=== PATIENT | female | born 1985 | race Caucasian/White ===

== ENCOUNTER → 2016-10-03 | Outpatient (REF) | payer OTHER ==
[~2016-10-03] MED LIST: ACET50TA PO; ANUS2.5C2 TOP; DOCU10CA PO; DOCU10ELUD PO; IBUP100SUS PO; IBUP80TA PO; MOM30SS PO; TYLE325T5 PO
== END ==
LOC: M LAB REF 17:34
PROVIDERS: ATTEND Advanced Practice Midwife
DX: Z12.4 Encounter for screening for malignant neoplasm of cervix (principal)

== ENCOUNTER → 2017-02-20 | Outpatient (CLI) | payer OTHER ==
--- NOTE | 2017-02-20 15:19 | REP ---
BILATERAL MAMMOGRAM WITH DIAGNOSTIC MAMMOGRAM RIGHT BREAST AND RIGHT BREAST ULTRASOUND: There is a 4 day history of a palpable abnormality in the upper outer quadrant of the right breast. The area is marked on the skin with a triangular marker. Additional spot compression views are performed of that region. Comparison made with prior study of 09/22/2008. There is moderate scattered fibroglandular tissue bilaterally. There is a vague oval nodular structure at the site of the reported palpable abnormality, measuring approximately 1.4 cm in maximum diameter. I see no other evidence of mass or clustered microcalcifications. Real-time sonographic evaluation of the right breast is performed at the site of the reported palpable abnormality. At that location is a solid nodule measuring 1.1 x 0.8 x 1.3 cm. It is heterogeneous. IMPRESSION: ACR 4 suspicious. At the site of the reported palpable abnormality there is a nodule seen both mammographically and sonographically. It is solid by ultrasound and I would recommend ultrasound guided biopsy. BI-RADS/ACR category 4 mammogram. Suspicious abnormality - biopsy should be considered. Usually requires biopsy. This mammogram was interpreted with the aid of an FDA-approved computer-aided detection system. The patient states she/he had a clinical breast exam in February 2017. The patient letter being requested is M4. Signed by Leroy Webster MD 02/21/2017 09:04 A
== END ==
LOC: M RAD 12:06
PROVIDERS: ATTEND Obstetrics & Gynecology
DX: N63.0 Unspecified lump in unspecified breast (principal)
CPT/HCPCS: 76642; G0204

== ENCOUNTER → 2017-07-19 | Outpatient (CLI) | payer OTHER ==
[2017-07-19 09:30] LABS: BASO % 0.4 % (0.0-1.0); EOS # 0.9 10^3/uL (0.0-0.50); EOS % 17.5 % (0.0-3.0); HEMATOCRIT 36.4 % (36.0-47.0); HEMOGLOBIN 12.1 g/dl (12.0-15.5); IMMATURE GRANULOCYTE % 0.2 % (0-3.0); LYMPH # 1.1 10^3/uL (1.5-4.5); LYMPH % 22.2 % (24.0-44.0); MEAN CORPUSCULAR HEMOGLOBIN 30.3 pg (27.0-33.0); MEAN CORPUSCULAR HGB CONC 33.2 g/dl (32.0-36.5); MONO # 0.4 10^3/uL (0.0-0.8); MONO % 8.6 % (0.0-5.0); NEUTROPHILS # 2.6 10^3/uL (1.8-7.7); NEUTROPHILS % 51.1 % (36.0-66.0); PLATELET COUNT, AUTOMATED 327 10^3/uL (150-450); WHITE BLOOD COUNT 5.1 10^3/uL (4.0-10.0)
[2017-07-19 09:42] LABS: ALBUMIN/GLOBULIN RATIO 1.21 (1.00-1.93); ALKALINE PHOSPHATASE 67 U/L (45-117); ALT/SGPT 10 U/L (12-78); ANION GAP 4 MEQ/L (8-16); AST/SGOT 14 U/L (7-37); BILIRUBIN,TOTAL 0.6 MG/DL (0.2-1.0); BLOOD UREA NITROGEN 12 MG/DL (7-18); CALCIUM LEVEL 8.7 MG/DL (8.5-10.1); CARBON DIOXIDE LEVEL 29 MEQ/L (21-32); CHLORIDE LEVEL 108 MEQ/L (98-107); GLOMERULAR FILTRATION RATE > 60.0 (>60); GLUCOSE, FASTING 85 MG/DL (70-100); POTASSIUM SERUM 5.1 MEQ/L (3.5-5.1); SODIUM LEVEL 141 MEQ/L (136-145); TOTAL PROTEIN 7.3 GM/DL (6.4-8.2)
[2017-07-19 09:43] LABS: INR 0.94; PROTHROMBIN TIME 12.7 SECONDS (12.4-14.5)
[2017-07-19 09:44] LABS: PARTIAL THROMBOPLASTIN TIME 26.9 SECONDS (26.8-37.9)
== END ==
LOC: M LAB 08:49
DX: Z01.812 Encounter for preprocedural laboratory examination (principal)
CPT/HCPCS: 80053

== ENCOUNTER → 2017-08-02 | Outpatient (CLI) | payer OTHER | LOC: M CARPUL 06:58 | DX: C81.11 Nodular sclerosis Hodgkin lymphoma, lymph nodes of head, face, and neck (principal) | CPT/HCPCS: 94010 ==

== ENCOUNTER → 2017-08-07 | Outpatient (CLI) | payer OTHER | LOC: M CARPUL 11:05 | DX: C81.11 Nodular sclerosis Hodgkin lymphoma, lymph nodes of head, face, and neck (principal) | CPT/HCPCS: 93306 ==

== ENCOUNTER 2017-08-16 18:34 | Emergency (ER) | payer OTHER ==
[2017-08-16] MEDS: ONDANSETRON 4MG/2ML VIAL (J2405) IV (19:57)
[2017-08-16] MEDS: NS 1,000 ML IV (19:57)
[2017-08-16] MEDS: MORPHINE 4 MG/ML 1ML VIAL/SYRINGE (J2270) IV ×2 (19:58→22:13)
[2017-08-16 20:14] LABS: BASO % 0.2 % (0.0-1.0); EOS # 0.7 10^3/uL (0.0-0.50); HEMATOCRIT 34.3 % (36.0-47.0); HEMOGLOBIN 11.7 g/dl (12.0-15.5); LYMPH # 1.4 10^3/uL (1.5-4.5); LYMPH % 16.8 % (24.0-44.0); MEAN CORPUSCULAR HEMOGLOBIN 30.2 pg (27.0-33.0); MEAN CORPUSCULAR HGB CONC 34.1 g/dl (32.0-36.5); MEAN CORPUSCULAR VOLUME 88.4 fl (80.0-96.0); MONO % 11.8 % (0.0-5.0); NEUTROPHILS # 4.2 10^3/uL (1.8-7.7); NEUTROPHILS % 51.1 % (36.0-66.0); PLATELET COUNT, AUTOMATED 290 10^3/uL (150-450); RED BLOOD COUNT 3.88 10^6/uL (4.00-5.40); RED CELL DISTRIBUTION WIDTH 11.7 % (11.5-14.5); WHITE BLOOD COUNT 8.2 10^3/uL (4.0-10.0)
[2017-08-16 20:17] LABS: IMMATURE GRANULOCYTE % 11.1 % (0-3.0)
[2017-08-16 20:18] LABS: POS COUNT POS FLAG; POSITIVE MORPH POS FLAG
[2017-08-16 20:39] LABS: ALBUMIN 3.9 GM/DL (3.2-5.2); ALKALINE PHOSPHATASE 95 U/L (45-117); ALT/SGPT 15 U/L (12-78); AMYLASE 42 U/L (25-115); ANION GAP 8 MEQ/L (8-16); AST/SGOT 18 U/L (7-37); BILIRUBIN,DIRECT < 0.1 MG/DL (0.0-0.2); BILIRUBIN,TOTAL 0.2 MG/DL (0.2-1.0); BLOOD UREA NITROGEN 11 MG/DL (7-18); CALCIUM LEVEL 8.8 MG/DL (8.5-10.1); CARBON DIOXIDE LEVEL 26 MEQ/L (21-32); CHLORIDE LEVEL 106 MEQ/L (98-107); CREATININE FOR GFR 0.85 MG/DL (0.55-1.30); GLOMERULAR FILTRATION RATE > 60.0 (>60); GLUCOSE, FASTING 130 MG/DL (70-100); LIPASE 106 U/L (73-393); POTASSIUM SERUM 4.1 MEQ/L (3.5-5.1); SODIUM LEVEL 140 MEQ/L (136-145); TOTAL PROTEIN 7.8 GM/DL (6.4-8.2)
[2017-08-16 20:43] LABS: KETONE, URINE AUTO RFX NEGATIVE (NEGATIVE); LEUKOCYTE ESTERASE UR AUTO RFX NEGATIVE (NEGATIVE); NITRITE, URINE AUTO RFX NEGATIVE (NEGATIVE); RBC, URINE AUTO RFX 2 /HPF (0-3); SPECIFIC GRAVITY UR AUTO RFX 1.005 (1.002-1.035); SQUAM EPITHELIAL CELL UR AURFX 0 /HPF (0-6); WBC, URINE AUTO RFX 1 /HPF (0-3)
[2017-08-16 21:01] LABS: LACTIC ACID SEPSIS PROTOCOL 2.9 MMOL/L (0.4-2.0)
[2017-08-16] MEDS ORDERED: ISOVUE-370 76% 100ML VIAL (Q9967) As Ordered (21:06)
[2017-08-16 21:08] LABS: CONTROL LINE UCG INT CTR LINE PRESENT; URINE PREG TEST NEGATIVE (NEGATIVE)
[2017-08-16 21:59] LABS: BASOPHILS 1 % (0-4); BLAST CELLS 1 % (0-0); METAMYELOCYTES 4 % (0-0)
[2017-08-16 22:01] LABS: NEUTROPHILS 54 % (35-75)
[2017-08-16 22:02] LABS: BANDS 3 % (< 11); EOSINOPHILS 7 % (0-5); LYMPHOCYTES 17 % (16-52); MONOCYTES 6 % (0-8); MYELOCYTES 2 % (0-0); PROMYELOCYTES 3 % (0-0)
[2017-08-16 22:03] LABS: ATYPICAL LYMPH 2 % (0-5)
[2017-08-16 22:04] LABS: PLATELET ESTIMATE NORMAL (NORMAL)
[2017-08-16 22:10] LABS: ADD MANUAL DIFFER YES
[2017-08-16 22:11] LABS: DIFF SLIDE NUMBER 367
[2017-08-16] MEDS: NORCO 5/325MG TABLET (BULK FOR ED) PO (22:41)
== END 2017-08-16 22:49 | disposition home or self-care (01) ==
LOC: M ED 18:34
DX: R10.9 Unspecified abdominal pain (principal); I45.10 Unspecified right bundle-branch block; C85.90 Non-Hodgkin lymphoma, unspecified, unspecified site; J45.909 Unspecified asthma, uncomplicated; Z86.19 Personal history of other infectious and parasitic diseases; R93.2 Abnormal findings on diagnostic imaging of liver and biliary tract; J30.2 Other seasonal allergic rhinitis; Z79.899 Other long term (current) drug therapy; Z91.013 Allergy to seafood
CPT/HCPCS: J2270

== ENCOUNTER 2017-08-17 16:16 | Emergency (ER) | payer OTHER ==
[2017-08-17 17:50] LABS: HEMATOCRIT 33.1 % (36.0-47.0); HEMOGLOBIN 11.1 g/dl (12.0-15.5); MEAN CORPUSCULAR HEMOGLOBIN 30.3 pg (27.0-33.0); MEAN CORPUSCULAR HGB CONC 33.5 g/dl (32.0-36.5); MEAN CORPUSCULAR VOLUME 90.4 fl (80.0-96.0); PLATELET COUNT, AUTOMATED 292 10^3/uL (150-450); RED BLOOD COUNT 3.66 10^6/uL (4.00-5.40); RED CELL DISTRIBUTION WIDTH 11.9 % (11.5-14.5); WHITE BLOOD COUNT 16.3 10^3/uL (4.0-10.0)
[2017-08-17] MEDS: MORPHINE 4 MG/ML 1ML VIAL/SYRINGE (J2270) IV (17:53)
[2017-08-17] MEDS: NS 1,000 ML IV (17:53)
[2017-08-17 18:10] LABS: LACTIC ACID SEPSIS PROTOCOL 1.5 MMOL/L (0.4-2.0)
[2017-08-17 18:11] LABS: ALBUMIN 3.8 GM/DL (3.2-5.2); ALBUMIN/GLOBULIN RATIO 1.23 (1.00-1.93); ALKALINE PHOSPHATASE 93 U/L (45-117); ALT/SGPT 15 U/L (12-78); ANION GAP 3 MEQ/L (8-16); AST/SGOT 23 U/L (7-37); BILIRUBIN,DIRECT < 0.1 MG/DL (0.0-0.2); BILIRUBIN,TOTAL 0.1 MG/DL (0.2-1.0); BLOOD UREA NITROGEN 9 MG/DL (7-18); CALCIUM LEVEL 8.9 MG/DL (8.5-10.1); CARBON DIOXIDE LEVEL 31 MEQ/L (21-32); CHLORIDE LEVEL 105 MEQ/L (98-107); CREATININE FOR GFR 0.76 MG/DL (0.55-1.30); GLOMERULAR FILTRATION RATE > 60.0 (>60); GLUCOSE, FASTING 99 MG/DL (70-100); POTASSIUM SERUM 4.1 MEQ/L (3.5-5.1); SODIUM LEVEL 139 MEQ/L (136-145); TOTAL PROTEIN 6.9 GM/DL (6.4-8.2)
[2017-08-17 18:48] LABS: POS COUNT POS FLAG; POSITIVE MORPH POS FLAG
[2017-08-17 18:49] LABS: ADD MANUAL DIFFER YES; DIFF SLIDE NUMBER 318
[2017-08-17 18:56] LABS: ATYPICAL LYMPH 9 % (0-5); BANDS 10 % (< 11); EOSINOPHILS 8 % (0-5); LYMPHOCYTES 10 % (16-52); METAMYELOCYTES 3 % (0-0); MONOCYTES 6 % (0-8); MYELOCYTES 1 % (0-0); NEUTROPHILS 53 % (35-75); NUCLEATED RED BLOOD CELL 1 % (0-0); PLATELET ESTIMATE NORMAL (NORMAL); TOXIC GRANULATION 1+
[2017-08-17] MEDS: PERCOCET 5MG/325MG TAB PO (19:08)
[2017-08-17 19:21] LABS: APPEARANCE, URINE HAZY (CLEAR); BACTERIA, URINE AUTO NEGATIVE (NEGATIVE); BILIRUBIN, URINE AUTO NEGATIVE (NEGATIVE); BLOOD, URINE BLOOD 1+ (NEGATIVE); COLOR, URINE YELLOW (YELLOW); GLUCOSE, URINE (UA) AUTO NEGATIVE (NEGATIVE); KETONE, URINE AUTO NEGATIVE (NEGATIVE); LEUKOCYTE ESTERASE, URINE AUTO NEGATIVE (NEGATIVE); MUCUS, URINE SMALL (NEGATIVE); NITRITE, URINE AUTO NEGATIVE (NEGATIVE); PROTEIN, URINE AUTO NEGATIVE (NEGATIVE); RBC, URINE AUTO 2 /HPF (0-3); SPECIFIC GRAVITY URINE AUTO 1.011 (1.002-1.035); SQUAMOUS EPITHELIAL CELL UR AU 4 /HPF (0-6); UROBILINOGEN, URINE AUTO 0.2 mg/dL (0.0-2.0); WBC, URINE AUTO 7 /HPF (0-3)
== END 2017-08-17 20:38 | disposition home or self-care (01) ==
LOC: M ED 16:16
DX: D72.829 Elevated white blood cell count, unspecified (principal); R10.9 Unspecified abdominal pain; T45.1X5A Adverse effect of antineoplastic and immunosuppressive drugs, initial encounter; C81.90 Hodgkin lymphoma, unspecified, unspecified site; Z91.048 Other nonmedicinal substance allergy status; Z91.013 Allergy to seafood; Z79.52 Long term (current) use of systemic steroids; Z79.899 Other long term (current) drug therapy; Z97.8 Presence of other specified devices
CPT/HCPCS: J2270

== ENCOUNTER 2017-09-29 16:58 | Emergency (ER) | payer OTHER ==
[2017-09-29 17:44] LABS: HEMATOCRIT 25.6 % (36.0-47.0); HEMOGLOBIN 8.5 g/dl (12.0-15.5); MEAN CORPUSCULAR HGB CONC 33.2 g/dl (32.0-36.5); MEAN CORPUSCULAR VOLUME 90.5 fl (80.0-96.0); PLATELET COUNT, AUTOMATED 178 10^3/uL (150-450); RED BLOOD COUNT 2.83 10^6/uL (4.00-5.40); RED CELL DISTRIBUTION WIDTH 14.4 % (11.5-14.5)
[2017-09-29 17:47] LABS: POS COUNT POS FLAG; POSITIVE DIFF POS FLAG; POSITIVE MORPH POS FLAG; WHITE BLOOD COUNT 1.8 10^3/uL (4.0-10.0)
[2017-09-29 17:50] LABS: ADD MANUAL DIFFER YES; DIFF SLIDE NUMBER 135
[2017-09-29] MEDS: NS 1,000 ML IV (18:07)
[2017-09-29] MEDS: ONDANSETRON 4MG/2ML VIAL (J2405) IV (18:07)
[2017-09-29] MEDS: MORPHINE 4 MG/ML 1ML VIAL/SYRINGE (J2270) IV (18:08)
[2017-09-29 18:17] LABS: ATYPICAL LYMPH 6 % (0-5); BANDS 6 % (< 11); BASOPHILS 2 % (0-4); EOSINOPHILS 1 % (0-5); LYMPHOCYTES 53 % (16-52); MONOCYTES 7 % (0-8); NEUTROPHILS 25 % (35-75)
[2017-09-29 18:19] LABS: ANISOCYTOSIS 1+; PLATELET ESTIMATE NORMAL (NORMAL); POLYCHROMASIA 1+; TEAR DROP CELLS 1+
[2017-09-29 18:20] LABS: ANION GAP 8 MEQ/L (8-16); BLOOD UREA NITROGEN 4 MG/DL (7-18); CALCIUM LEVEL 8.4 MG/DL (8.5-10.1); CARBON DIOXIDE LEVEL 32 MEQ/L (21-32); CHLORIDE LEVEL 99 MEQ/L (98-107); CREATININE FOR GFR 0.66 MG/DL (0.55-1.30); GLOMERULAR FILTRATION RATE > 60.0 (>60); GLUCOSE, FASTING 101 MG/DL (70-100); POTASSIUM SERUM 3.8 MEQ/L (3.5-5.1); SODIUM LEVEL 139 MEQ/L (136-145)
[2017-09-29] MEDS: GI COCKTAIL 50ML BTL(HYOSCYAMINE/MAALOX/LIDOCAINE VISCOUS)(1:3:1) PO (18:55)
[2017-09-29] MEDS ORDERED: ISOVUE-370 76% 100ML VIAL (Q9967) As Ordered (19:40)
== END 2017-09-29 22:24 | disposition home or self-care (01) ==
LOC: M ED 16:58
DX: D70.9 Neutropenia, unspecified (principal); K59.00 Constipation, unspecified; K64.4 Residual hemorrhoidal skin tags; C85.90 Non-Hodgkin lymphoma, unspecified, unspecified site; B19.20 Unspecified viral hepatitis C without hepatic coma; Z95.9 Presence of cardiac and vascular implant and graft, unspecified; Z92.21 Personal history of antineoplastic chemotherapy; J30.89 Other allergic rhinitis; Z91.013 Allergy to seafood
CPT/HCPCS: J2270

== ENCOUNTER → 2017-10-09 | Outpatient (CLI) | payer OTHER ==
[2017-10-09 14:37] LABS: BASO % 0.5 % (0.0-1.0); HEMATOCRIT 27.1 % (36.0-47.0); HEMOGLOBIN 8.9 g/dl (12.0-15.5); IMMATURE GRANULOCYTE % 0.5 % (0-3.0); LYMPH # 0.8 10^3/uL (1.5-4.5); LYMPH % 41.2 % (24.0-44.0); MEAN CORPUSCULAR HEMOGLOBIN 30.4 pg (27.0-33.0); MEAN CORPUSCULAR HGB CONC 32.8 g/dl (32.0-36.5); MEAN CORPUSCULAR VOLUME 92.5 fl (80.0-96.0); MONO # 0.1 10^3/uL (0.0-0.8); MONO % 3.4 % (0.0-5.0); NEUTROPHILS # 1.1 10^3/uL (1.8-7.7); NEUTROPHILS % 54.4 % (36.0-66.0); PLATELET COUNT, AUTOMATED 288 10^3/uL (150-450); RED BLOOD COUNT 2.93 10^6/uL (4.00-5.40); RED CELL DISTRIBUTION WIDTH 15.3 % (11.5-14.5)
== END ==
LOC: M LAB 14:12
DX: C81.11 Nodular sclerosis Hodgkin lymphoma, lymph nodes of head, face, and neck (principal)
CPT/HCPCS: 85025

== ENCOUNTER 2017-12-10 08:32 | Emergency (ER) | payer OTHER ==
[2017-12-10] MEDS: BISACODYL 10 MG SUPP PR (09:26)
== END 2017-12-10 10:57 | disposition home or self-care (01) ==
LOC: M ED 08:32
DX: K59.00 Constipation, unspecified (principal); C85.90 Non-Hodgkin lymphoma, unspecified, unspecified site; Z92.21 Personal history of antineoplastic chemotherapy; J45.909 Unspecified asthma, uncomplicated; J30.2 Other seasonal allergic rhinitis; Z86.19 Personal history of other infectious and parasitic diseases; Z79.899 Other long term (current) drug therapy; Z91.013 Allergy to seafood
CPT/HCPCS: 74018

== ENCOUNTER 2018-04-10 08:51 | Emergency (ER) | payer OTHER ==
[~2018-04-10] VITALS: Ht 160 cm; Wt 60.0 kg
[~2018-04-10 08:51] MED LIST changes: -ACET50TA PO; +BISAC5TA; +CYCL10TA; +DOCU100C16; +DULC10SU2 PR; +DULO1CAP2; +FLUC100T; +HYDR-3363; +IBUP80TA; +LORA0.5T11; +MAPA500T2 PO; +MAXA10TA14; +METH10TA2; +METH5TA PO; +OLAN10TA2; +ONDA8TAB8; +PERC5TAB12 PO; +PRED10TA2
[2018-04-10] MEDS ORDERED: KETOROLAC 30 MG/ML VIAL (J1885) IV ONE (09:30)
[2018-04-10] MEDS ORDERED: ONDANSETRON 4MG/2ML VIAL (J2405) IV ONE (09:30)
[2018-04-10] MEDS ORDERED: SODIUM CHLORIDE 0.9% INJ 10 ML SYR IV PRN (09:30)
[2018-04-10 09:46] LABS: BASO % 0.1 % (0.0-1.0); EOS # 0.3 10^3/uL (0.0-0.50); HEMATOCRIT 38.3 % (36.0-47.0); HEMOGLOBIN 12.3 g/dl (12.0-15.5); LYMPH # 0.7 10^3/uL (1.5-4.5); LYMPH % 9.3 % (24.0-44.0); MEAN CORPUSCULAR HEMOGLOBIN 29.7 pg (27.0-33.0); MEAN CORPUSCULAR HGB CONC 32.1 g/dl (32.0-36.5); MEAN CORPUSCULAR VOLUME 92.5 fl (80.0-96.0); MONO # 0.5 10^3/uL (0.0-0.8); MONO % 6.3 % (0.0-5.0); NEUTROPHILS # 5.8 10^3/uL (1.8-7.7); NEUTROPHILS % 79.9 % (36.0-66.0); PLATELET COUNT, AUTOMATED 274 10^3/uL (150-450); RED BLOOD COUNT 4.14 10^6/uL (4.00-5.40); WHITE BLOOD COUNT 7.3 10^3/uL (4.0-10.0)
[2018-04-10] MEDS: GASTROGRAFIN SOLUTION 30ML PO SCH ×2 (09:47→10:20)
[2018-04-10] MEDS: MORPHINE 4 MG/ML 1ML VIAL/SYRINGE (J2270) IV PRN ×2 (09:53→10:25)
[2018-04-10 10:28] LABS: BLOOD UREA NITROGEN 13 MG/DL (7-18); CARBON DIOXIDE LEVEL 30 MEQ/L (21-32); CHLORIDE LEVEL 102 MEQ/L (98-107); CREATININE FOR GFR 0.72 MG/DL (0.55-1.30); GLOMERULAR FILTRATION RATE > 60.0 (>60); GLUCOSE, FASTING 86 MG/DL (70-100); POTASSIUM SERUM 4.9 MEQ/L (3.5-5.1); SODIUM LEVEL 138 MEQ/L (136-145)
[2018-04-10] MEDS ORDERED: ISOVUE-370 76% 100ML VIAL (Q9967) As Ordered ONE (11:04)
--- NOTE | 2018-04-10 11:29 | REP ---
Clinical: Acute left lower quadrant pain. Technique: Axial contrast enhanced images from the lung bases to the pubic symphysis using oral (per protocol) and 100 ml Isovue 370 intravenous contrast material with coronal and sagittal re-formations. Comparison: 09/29/2017. Findings: Mucosal thickening and pericolonic stranding involving the proximal descending colon (images [id number]) is most compatible with infectious/inflammatory colitis versus diverticulitis. No free air or drainable collection/abscess identified to suggest perforation. Small amount of ascites noted in the pelvis. Moderate fecal stasis throughout the remainder of the colon noted without evidence for bowel obstruction. Liver, spleen, pancreas, gallbladder, bilateral adrenal glands and kidneys are normal. Pelvis demonstrates normal bladder and age-appropriate uterus/adnexa. No adenopathy. Abdominal aorta and vasculature normal. Surrounding musculoskeletal structures are intact. Impression: Infectious/inflammatory colitis versus diverticulitis involving the proximal to mid descending colon. No associated bowel obstruction, perforation, or drainable collection/abscess noted. Electronically Signed by Gómez Casey MD 04/10/2018 11:21 A
[2018-04-10] MEDS ORDERED: GABA-1171 PO (12:05)
[2018-04-10] MEDS ORDERED: metroNIDAZOLE 500 MG in APPROPRIATE DILUENT 1 EA IV ONE (12:15)
[2018-04-10] MEDS ORDERED: CIPROFLOXACIN 400 MG in APPROPRIATE DILUENT 1 EA IV ONE (12:15)
[2018-04-10 15:00] VITALS: BP 103/58
[2018-04-10] MEDS ORDERED: FLAG500T PO (15:23)
[2018-04-10] MEDS ORDERED: CIPR-249 PO (15:23)
== END 2018-04-10 15:40 | disposition home or self-care (01) ==
LOC: M ED 08:51
DX: K57.92 Diverticulitis of intestine, part unspecified, without perforation or abscess without bleeding (principal); K59.00 Constipation, unspecified; J30.1 Allergic rhinitis due to pollen; Z91.013 Allergy to seafood; Z79.899 Other long term (current) drug therapy; Z85.72 Personal history of non-Hodgkin lymphomas
CPT/HCPCS: 74177; 80048; 85025; 93041; 96365; 96366; 96375; 96376; 99285; J0744; J1885; J2270; J2405; Q9963; Q9967

== ENCOUNTER 2018-05-22 17:03 | Emergency (ER) | payer OTHER ==
[~2018-05-22] VITALS: Ht 160 cm; Wt 61.4 kg
[~2018-05-22 17:03] MED LIST changes: +CIPR-249 PO; +FLAG500T PO; +GABA-1171 PO; -METH10TA2; +METH10TA2 PO
[2018-05-22] MEDS ORDERED: KETOROLAC 30 MG/ML VIAL (J1885) IV ONE (18:45)
[2018-05-22] MEDS ORDERED: NS 1,000 ML IV ONE (18:45)
[2018-05-22] MEDS ORDERED: GI COCKTAIL 50ML BTL(HYOSCYAMINE/MAALOX/LIDOCAINE VISCOUS)(1:3:1) PO ONE (18:45)
[2018-05-22] MEDS ORDERED: SUCRALFATE 1 GM TAB PO ONE (18:45)
[2018-05-22 19:30] LABS: BASO % 0.2 % (0.0-1.0); EOS # 0.3 10^3/uL (0.0-0.50); EOS % 5.9 % (0.0-3.0); HEMATOCRIT 36.9 % (36.0-47.0); HEMOGLOBIN 12.3 g/dl (12.0-15.5); LYMPH # 1.3 10^3/uL (1.5-4.5); LYMPH % 30.3 % (24.0-44.0); MEAN CORPUSCULAR HEMOGLOBIN 29.4 pg (27.0-33.0); MEAN CORPUSCULAR HGB CONC 33.3 g/dl (32.0-36.5); MEAN CORPUSCULAR VOLUME 88.3 fl (80.0-96.0); MONO # 0.3 10^3/uL (0.0-0.8); MONO % 7.5 % (0.0-5.0); NEUTROPHILS # 2.5 10^3/uL (1.8-7.7); NEUTROPHILS % 55.9 % (36.0-66.0); PLATELET COUNT, AUTOMATED 238 10^3/uL (150-450); RED BLOOD COUNT 4.18 10^6/uL (4.00-5.40); WHITE BLOOD COUNT 4.4 10^3/uL (4.0-10.0)
[2018-05-22 19:49] LABS: HCG, SERUM QUALITATIVE NEGATIVE (NEGATIVE)
[2018-05-22 19:52] LABS: ALBUMIN 3.6 GM/DL (3.2-5.2); ALT/SGPT 11 U/L (12-78); BILIRUBIN,DIRECT 0.1 MG/DL (0.0-0.2); BILIRUBIN,TOTAL 0.5 MG/DL (0.2-1.0); BLOOD UREA NITROGEN 12 MG/DL (7-18); CALCIUM LEVEL 8.7 MG/DL (8.5-10.1); CARBON DIOXIDE LEVEL 27 MEQ/L (21-32); CHLORIDE LEVEL 107 MEQ/L (98-107); CPK CREATINE PHOSPHOKINASE 104 U/L (26-192); CREATININE FOR GFR 0.66 MG/DL (0.55-1.30); GLOMERULAR FILTRATION RATE > 60.0 (>60); GLUCOSE, FASTING 91 MG/DL (70-100); LIPASE 114 U/L (73-393); MB/CK RELATIVE INDEX 1.25 (< OR =4); POTASSIUM SERUM 3.9 MEQ/L (3.5-5.1); SODIUM LEVEL 140 MEQ/L (136-145); TOTAL PROTEIN 6.8 GM/DL (6.4-8.2); TROPONIN I < 0.02 NG/ML (< 0.10)
[2018-05-22] MEDS ORDERED: ISOVUE-370 76% 100ML VIAL (Q9967) As Ordered ONE (19:54)
[2018-05-22] MEDS ORDERED: HALOPERIDOL 5 MG/ML VIAL (J1630) IV ONE (20:15)
--- NOTE | 2018-05-22 21:07 | ECGEPIP ---
Stationary ECG Study [facility] - ED Test Date: 2018-05-22 Pat Name: DEJUAN HICKS Department: Room: - Gender: F Information Officer: YOSELIN : 1985 Requested By: Albin Bhagat Order Number: [id number] Reading MD: Bharati Morris Measurements Intervals [place] Rate: 70 P: 66 NC: 149 QRS: 75 QRSD: 97 T: -6 QT: 396 QTc: 430 Interpretive Statements SINUS RHYTHM INCOMPLETE RIGHT BUNDLE BRANCH BLOCK NONSPECIFIC T-WAVE ABNORMALITY SIMILAR 08/16/17 Electronically Signed On 05-22-2018 21:07:25 EDT by Bharati Morris
--- NOTE | 2018-05-22 21:13 | REPVR ---
EXAM: CT Abdomen and Pelvis With Contrast EXAM DATE/TIME: 05/22/2018 8:00 PM CLINICAL HISTORY: 33 years old, female; Pain; Abdominal pain; Generalized; Additional info: Worsening llq and epigastric abd pain, HX divertic TECHNIQUE: Axial computed tomography images of the abdomen and pelvis with intravenous contrast. All CT scans at this facility use at least one of these dose optimization techniques: automated exposure control; mA and/or kV adjustment per patient size (includes targeted exams where dose is matched to clinical indication); or iterative reconstruction. Coronal and sagittal reformatted images were created and reviewed. CONTRAST: Contrast Material: 100 ml of ISOVUE 370; Contrast Route: IV COMPARISON: CT ABD/PEL W/IV ORAL CONTRAS 04/10/2018 11:02 AM FINDINGS: Lower thorax: Clear lung bases. ABDOMEN: Liver: There is a 3.2 CM cyst of the left lobe of the liver appearing very similar to the examination of March. Gallbladder and bile ducts: The gallbladder is completely contracted. Pancreas: Normal. No ductal dilation. Spleen: Normal spleen. Adrenals: Normal adrenal glands. Kidneys and ureters: Normal. No hydronephrosis. Stomach and bowel: Normal-appearing small bowel. There is no evidence of bowel obstruction. Appendix: No evidence of appendicitis. PELVIS: Bladder: The urinary bladder is almost empty. Reproductive: Mild thickening of the endometrium probably secretory type endometrium. There is an enhancing corpus luteum of both the right and left ovary. There are very prominent ovarian veins and varices along the right and left side of the uterus. ABDOMEN and PELVIS: Intraperitoneal space: There is no evidence of pneumoperitoneum. There is a small amount of free fluid in the pelvis. Bones/joints: There is no evidence of bony abnormality. Soft tissues: Unremarkable. Vasculature: There is opacification of the aorta appears normal in size. There is opacification of the SMV and the SMA. Lymph nodes: Normal. No enlarged lymph nodes. IMPRESSION: 1. Small amount of fluid in the pelvis. 2. Varices along the right and left side of the uterus with prominent ovarian veins. 3. Enhancement in the right and left ovary could be enhancing corpus luteum. 4. The gallbladder is contracted. 5. Inflammation of the left colon has resolved since 04/10/2018. Electronically signed by: Nabeel Christensen On 05/22/2018 21:13:33 PM
[2018-05-22] MEDS ORDERED: CARA1TAB6 PO (21:42)
[2018-05-22] MEDS ORDERED: RANI15TA PO (21:42)
[2018-05-22 21:52] VITALS: BP 97/52
--- NOTE | 2018-05-23 15:01 | ED PDOC ---
Post-Departure Follow-Up dr akhil norton faxed formal report of ct ab/p for fu Radha Garcia MD May 23, 2018 15:01
== END 2018-05-22 22:24 | disposition home or self-care (01) ==
LOC: M ED 17:03
DX: R10.32 Left lower quadrant pain (principal); R10.13 Epigastric pain; Z79.899 Other long term (current) drug therapy
CPT/HCPCS: 36415; 74177; 80048; 80076; 81001; 81025; 82550; 82553; 83690; 84703; 85025; 93005; 96374; 96375; 99284; J1630; J1885; Q9967